=== PATIENT | male | born 1945 | race Two or more races ===

== ENCOUNTER 2018-03-08 09:54 | Outpatient (CLI) | payer OTHER | END 2018-03-08 10:21 | disposition home or self-care (01) | LOC: RAD 501 09:54 | DX: M25.561 Pain in right knee (principal) ==

== ENCOUNTER 2018-06-10 08:20 | Outpatient (CLI) | payer OTHER | END 2018-06-10 09:05 | disposition home or self-care (01) | LOC: RAD 08:20 | DX: E78.2 Mixed hyperlipidemia (principal); N39.0 Urinary tract infection, site not specified; E11.65 Type 2 diabetes mellitus with hyperglycemia; J45.998 Other asthma ==